=== PATIENT | male | born 1980 | race Two or more races ===

== ENCOUNTER 2017-04-08 10:02 | Inpatient (IN) | payer MEDICAID ==
[~2017-04-08] VITALS: Ht 185.4 cm; Wt 121.6 kg
--- NOTE | 2017-04-08 10:02 | NUR ---
BIBRA 89 FROM HOME C/O LOWER ABDOMINAL PAIN MORE ON THE LEFT X YESTERDAY. TEMP 100.6 . PLACED ON MONITOR. AWAITING MD ORDER
--- NOTE | 2017-04-08 10:20 | NUR ---
LAC #18 IV ACCESS. BLOOD SAMPLE COLLECTED SENT TO LAB
--- NOTE | 2017-04-08 10:21 | NUR ---
URINE SAMPLE COLLECTED SENT TO LAB
[2017-04-08 10:23] LABS: APPEARANCE,URINE Clear (CLEAR); BILIRUBIN,URINE SMALL (NEGATIVE); BLOOD, URINE Negative Ery/uL (NEGATIVE); COLOR,URINE Yellow (YELLOW); KETONES,URINE Negative (NEGATIVE); LEUKOCYTE ESTERASE ,URINE Negative (NEGATIVE); NITRITE, URINE Negative (NEGATIVE); PH,URINE 6.5 (5.0-8.0); PROTEIN,URINE Trace mg/dl (NEGATIVE); UGLUCOSE Negative (NEGATIVE)
[2017-04-08 10:23] LABS: BASOPHILS # (AUTO) 0.1 /CMM (0.0-0.2); BASOPHILS % (AUTO) 0.7 % (0.0-2.0); EOSINOPHILS # (AUTO) 0.2 /CMM (0.0-0.7); EOSINOPHILS % (AUTO) 1.3 % (0.0-6.0); HEMATOCRIT 43 % (39-51); HEMOGLOBIN 14.7 g/dL (13.5-17.5); LYMPHOCYTES # (AUTO) 2.3 /CMM (0.8-4.8); LYMPHOCYTES % (AUTO) 19.9 % (20.0-44.0); MEAN CORPUSCULAR HEMOGLOBIN 29 PG (26.0-33.0); MEAN CORPUSCULAR HGB CONC 34 g/dl (31.0-36.0); MEAN CORPUSCULAR VOLUME 84 fL (80-96); MONOCYTES # (AUTO) 0.7 /CMM (0.1-1.30); MONOCYTES % (AUTO) 6.1 % (2.0-12.0); NEUTROPHILS # (AUTO) 8.5 /CMM (1.8-8.9); PLATELET COUNT (AUTO) 207 /CMM (150-450); RDW COEFFICIENT OF VARIATION 12.3 (11.5-15.0); RED BLOOD CELL COUNT(AUTO) 5.14 MIL/uL (4.5-6.0); WHITE BLOOD COUNT (AUTO) 11.8 K/uL (4.3-11.0)
[2017-04-08] MEDS ORDERED: ONDANSETRON HCL/PF 4 MG/2 ML VIAL ONE (10:29)
[2017-04-08] MEDS ORDERED: ONDANSETRON HCL/PF 4 MG/2 ML VIAL IVP ONE (10:30)
[2017-04-08] MEDS ORDERED: HYDROMORPHONE INJ 2 MG/ML DISP.SYRIN IV ONE (10:30)
[2017-04-08] MEDS ORDERED: IV NS 0.9% 1,000 ML BAG IV ONE (10:30)
--- NOTE | 2017-04-08 10:30 | NUR ---
PT TAKEN TO CT SCAN
[2017-04-08 10:32] LABS: CALCIUM, SERUM 8.7 mg/dL (8.5-10.1); POTASSIUM 3.7 mmol/L (3.5-5.1)
[2017-04-08] MEDS ORDERED: KETOROLAC TROMETHAMINE INJ 30 MG/ML VIAL ONE (10:34)
[2017-04-08 10:35] LABS: BACTERIA,URINE Rare /HPF (None Seen); RBC,URINE 0-2 /HPF (0-2); SQUAMOUS EPITHELIAL CELL,UR Few /HPF (None Seen); WBC,URINE 0-2 /HPF (0-3)
[2017-04-08 10:38] LABS: ALBUMIN 3.7 g/dL (3.4-5.0); BILIRUBIN,DIRECT 0.1 mg/dL (0.0-0.2); BILIRUBIN,TOTAL 0.7 mg/dL (0.2-1.0); INR 1.03 (0.87-1.13); PROTHROMBIN TIME 10.7 SECS (9.5-12.7); TOTAL PROTEIN, SERUM 7.7 g/dL (6.4-8.2)
[2017-04-08] MEDS ORDERED: KETOROLAC TROMETHAMINE INJ 30 MG/ML VIAL IV ONE (11:00)
--- NOTE | 2017-04-08 11:10 | NUR ---
CALLED DR OLIVER ANSWERING SERVICE, I WAS TOLD TO CALL BACK IN 15 MINS.
--- NOTE | 2017-04-08 11:10 | NUR ---
CALLED SURGERY PAINT LINE SUPERVISOR, DR CHEUNG [phone]. LEFT A VOICEMAIL.
[2017-04-08] MEDS ORDERED: CEFTRIAXONE 1GM BAG (ER ONLY) 50 ML IV ONE (11:16)
[2017-04-08] MEDS ORDERED: METRONIDAZOLE 500MG/ NS 100ML 100 ML IV ONE (11:16)
[2017-04-08] MEDS ORDERED: IV NS 0.9% 500 ML IV ONE (11:30)
[2017-04-08] MEDS ORDERED: CEFTRIAXONE 1GM BAG (ER ONLY) 1 GM/50 ML PIGGYBACK IV ONE (11:30)
[2017-04-08] MEDS ORDERED: FLAGYL/NS RTU 500 MG/100 ML PIGGYBACK IV ONE (11:30)
--- NOTE | 2017-04-08 11:51 | NUR ---
PAGED DR JARRELL.
--- NOTE | 2017-04-08 11:53 | NUR ---
DR CHEUNG CALLED BACK, ON THE PHONE WITH DR LYLE.
--- NOTE | 2017-04-08 12:15 | NUR ---
GAVE REPORT TO VAUGHN MCDONNELLSURG DIVERTICULTIS DR [place]AM
[2017-04-08 12:50] VITALS: BP 131/69
--- NOTE | 2017-04-08 12:50 | NUR ---
ms rn documentation specialist notes Admitted a 36 years old male patient who came in due to diverticulitis. Patient is alert and oriented x 4, verbally responsive and able to make needs known. Complaint of pain 5/10 at this time. Pain medication given at the ER prior transfer, will monitor. IV in placed and intact and patent with IVF infusing well. Dr. Valiente aware of the admission. Kept patient clean and comfortable in bed, call light with in patient reach, skin is intact. Will continue to monitor accordingly.
[2017-04-08] MEDS ORDERED: PIPERACILLIN /TAZOBACTAM 4.5 G in IV D5W 50 ML IV SCH (13:00)
[2017-04-08] MEDS ORDERED: Z GUARD REMEDY 2 OZ OINT TP PRN (13:30)
[2017-04-08] MEDS ORDERED: MAG HYDROX/AL HYDROX/SIMETH 30 ML UDC PO PRN (13:30)
[2017-04-08] MEDS ORDERED: MAGNESIUM HYDROXIDE 30 ML UDC PO PRN (13:30)
[2017-04-08] MEDS ORDERED: ACETAMINOPHEN 325 MG TABLET PO PRN (13:30)
[2017-04-08] MEDS ORDERED: METRONIDAZOLE 500MG/ NS 100ML 500 MG in PREMIX 1 EA IV SCH ×2 (13:30)
[2017-04-08] MEDS ORDERED: ONDANSETRON HCL/PF 4 MG/2 ML VIAL IVP PRN (13:30)
[2017-04-08] MEDS ORDERED: HYDROCODONE/APAP 5/325MG 1 EACH TABLET PO PRN (13:30)
[2017-04-08] MEDS ORDERED: ZOLPIDEM TARTRATE 5 MG TABLET PO PRN (13:30)
[2017-04-08] MEDS: PIPERACILLIN /TAZOBACTAM 3.375 G in IV D5W 50 ML IV SCH ×3 (13:37→23:27)
[2017-04-08] MEDS: MORPHINE SULFATE INJ 2 MG/ML DISP.SYRIN IV PRN ×2 (14:17→18:06)
[2017-04-08] MEDS: CIPROFLOXACIN IV RTU 400 MG in PREMIX 1 EA IV SCH (15:02)
[2017-04-08 16:00] VITALS: BP 113/64
--- NOTE | 2017-04-08 18:13 | NUR ---
ms rn notes Dr. douglas came seen and examined the patient and ordered to change Morphine to dilaudid 1 mg IVP Q3hrs for severe pain. All orders carried out and noted. Will continue to monitor accordingly.
--- NOTE | 2017-04-08 18:17 | NUR ---
ms rn notes changed dilaudid to Morphine 4 mg Q2hrs PRN for severe pain as ordered by Dr. Russ. All orders carried out and noted. Will continue to monitor accordingly.
[2017-04-08] MEDS ORDERED: HYDROMORPHONE 1 MG/1 ML DISP.SYRIN IV PRN (18:30)
[2017-04-08] MEDS ORDERED: MORPHINE SULFATE INJ 4 MG/ML DISP.SYRIN IV PRN (18:30)
--- NOTE | 2017-04-08 19:26 | NUR ---
ms rn closing notes All needs provided, attended, and anticipated. kept patient clean and comfortable in bed, call light with in patient reach, endorsed to next shift RN to continue care.
[2017-04-08 20:00] VITALS: BP 145/71
--- NOTE | 2017-04-08 20:00 | NUR ---
RN NOTES PATIENT IN BED, ALERT AND ORIENTED X4, CALM, WITH EPISODES OF IRRITABILITY, NO SOB, TOLERATING ROOM AIR, SPO2 95%,COMPLAINING OF ABDOMINAL PAIN, RECEIVED PAIN MEDICATION, LEFT AC PERIPHERAL LINE IS PATENT AND INFUSING WELL, SEEN BY DR. LAGUNA. KEPT COMFORTABLE, CALL LIGHT WITHIN REACH. MOTHER AT THE BEDSIDE.
[2017-04-08] MEDS: METRONIDAZOLE 500MG/ NS 100ML 500 MG in PREMIX 1 EA IV SCH (20:06)
--- NOTE | 2017-04-08 20:10 | NUR ---
RN NOTES PATIENT TEMPERATURE IS 101.2F. SKIN IS WARM TO TOUCH, NOTIFIED DR. LAGUNA TO CHANGE DIET TO NPO EXCEPT MEDS. GIVEN TYLENOL 650 MG PO PRN. COOLING MEASURES INITIATED, WILL CONTINUE TO MONITOR.
--- NOTE | 2017-04-08 21:30 | NUR ---
RN NOTES RECHECKED TEMPERATURE, 98.5F. PATIENT VERBALIZED FEELING COMFORTABLE EXCEPT FOR ABDOMINAL PAIN, WILL ADMINISTER PAIN MEDICATION WHEN DUE.
[2017-04-08] MEDS: IV D5/0.45 NACL 1,000 ML IV PRN (21:34)
[2017-04-09] MEDS: CIPROFLOXACIN IV RTU 400 MG in PREMIX 1 EA IV SCH ×2 (01:20→13:47)
[2017-04-09] MEDS: METRONIDAZOLE 500MG/ NS 100ML 500 MG in PREMIX 1 EA IV SCH ×2 (04:11→12:26)
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
[2017-04-09 05:30] VITALS: BP 121/86
[2017-04-09] MEDS: PIPERACILLIN /TAZOBACTAM 3.375 G in IV D5W 50 ML IV SCH ×4 (05:38→23:57)
--- NOTE | 2017-04-09 06:52 | NUR ---
RN NOTES PATIENT IS AWAKE, NO SOB, NO DISTRESS, PROVIDED PAIN MEDICATION DURING SHIFT, ALL DUE MEDICATIONS GIVEN, COMPLIANT WITH MEDICATION, ALL NEEDS ATTENDED, CALL LIGHT WITHIN REACH.
[2017-04-09 07:16] LABS: BASOPHILS % (AUTO) 0.6 % (0.0-2.0); EOSINOPHILS # (AUTO) 0.3 /CMM (0.0-0.7); EOSINOPHILS % (AUTO) 3.5 % (0.0-6.0); HEMATOCRIT 38 % (39-51); HEMOGLOBIN 13.1 g/dL (13.5-17.5); LYMPHOCYTES # (AUTO) 1.6 /CMM (0.8-4.8); LYMPHOCYTES % (AUTO) 20.6 % (20.0-44.0); MEAN CORPUSCULAR HEMOGLOBIN 29 PG (26.0-33.0); MEAN CORPUSCULAR HGB CONC 34 g/dl (31.0-36.0); MEAN CORPUSCULAR VOLUME 85 fL (80-96); MONOCYTES # (AUTO) 0.7 /CMM (0.1-1.30); MONOCYTES % (AUTO) 8.5 % (2.0-12.0); NEUTROPHILS # (AUTO) 5.3 /CMM (1.8-8.9); NEUTROPHILS % (AUTO) 66.8 % (43.0-81.0); PLATELET COUNT (AUTO) 170 /CMM (150-450); RDW COEFFICIENT OF VARIATION 12.9 (11.5-15.0); RED BLOOD CELL COUNT(AUTO) 4.52 MIL/uL (4.5-6.0); WHITE BLOOD COUNT (AUTO) 7.9 K/uL (4.3-11.0)
[2017-04-09 07:19] LABS: INR 1.05 (0.87-1.13); PROTHROMBIN TIME 10.9 SECS (9.5-12.7)
--- NOTE | 2017-04-09 07:27 | NUR ---
ms rn initial notes Received patient in bed, awake, head of bed elevated, no SOB or distress noted, on room air. Patient is alert and oriented x 4, verbally responsive and able to make needs known. IV intact and patent with IVF infusing well. Pain is tolerated as patient verbalized. kept patient clean and comfortable in bed, call light with in patient reach, will continue to monitor accordingly.
[2017-04-09 07:42] LABS: ALBUMIN 2.9 g/dL (3.4-5.0); BILIRUBIN,TOTAL 1.1 mg/dL (0.2-1.0); CALCIUM, SERUM 8.3 mg/dL (8.5-10.1); MAGNESIUM 1.8 mg/dL (1.8-2.4); PHOSPHORUS 2.5 mg/dL (2.5-4.9); POTASSIUM 3.7 mmol/L (3.5-5.1); TOTAL PROTEIN, SERUM 6.7 g/dL (6.4-8.2)
[2017-04-09 07:48] LABS: THYROID STIMULATING HORMONE 1.192 uIU/mL (0.358-3.74)
[2017-04-09 08:00] VITALS: BP 130/72
[2017-04-09] MEDS: NICOTINE PATCH (14MG) 14 MG PATCH.TD24 TD SCH (08:54)
[2017-04-09] MEDS: PANTOPRAZOLE 40 MG VIAL IV SCH (08:54)
[2017-04-09 10:22] LABS: RETICULOCYTE COUNT 1.5 % (0.6-2.5)
[2017-04-09] MEDS: IV D5/0.45 NACL 1,000 ML IV PRN (13:50)
[2017-04-09 16:00] VITALS: BP 126/69
[2017-04-09 20:00] VITALS: BP 106/52
--- NOTE | 2017-04-09 20:00 | NUR ---
RN NOTES PATIENT IN BED, ALERT AND ORIENTED X4, CALM, NO SOB, NO RESPIRATORY DISTRESS, NO COMPLAIN OF PAIN, PER PATIENT ABDOMINAL PAIN OCCURS WHEN MOVING. LEFT AC PERIPHERAL LINE IS PATENT AND INFUSING WELL. NEEDS ATTENDED, CALL LIGHT WITHIN REACH.
--- NOTE | 2017-04-09 20:15 | NUR ---
RN NOTES PATIENT REQUESTING SOME WATER, VERIFIED WITH DR. LAGUNA. PER , STRICTLY NPO. CHANGED ORDER FROM NPO EXCEPT MEDS TO NPO ONLY. PATIENT NOTIFIED, VERBALIZED UNDERSTANDING
[2017-04-10] MEDS: IV D5/0.45 NACL 1,000 ML IV PRN ×2 (05:31→22:32)
[2017-04-10] MEDS: PIPERACILLIN /TAZOBACTAM 3.375 G in IV D5W 50 ML IV SCH ×4 (05:31→23:38)
--- NOTE | 2017-04-10 06:44 | NUR ---
RN NOTES PATIENT IS AWAKE, RESTING COMFORTABLY IN BED, NO SOB, NO DISTRESS, DENIES ANY PAIN AT THIS TIME, LEFT AC PERIPHERAL LINE IS PATENT AND INFUSING WELL, COMPLIANT WITH MEDICATIONS, SLEPT FOR 8 HOURS INTERMITTENTLY, NO ADVERSE CHANGE OF CONDITION DURING SHIFT, NEEDS ATTENDED, CALL LIGHT WITHIN REACH.
--- NOTE | 2017-04-10 07:55 | NUR ---
MS RN: INITIAL NOTE RECEIVED PT A/OX4. NO DISTRESS NOTED. NO SOB NOTED. NO PAIN NOTED. NO N/V NOTED. COMPLETE NPO. AMBULATORY. SKIN INTACT. L AC #18 WITH D5 1/2 NS RUNNING AT 75ML/HR. SITE CLEAR AND PATENT. STOOL FOR OCCULT BLOOD COLLECTED AND SENT TO LAB. PT RESTING COMFORTABLY IN BED. CALL LIGHT WITHIN REACH.
[2017-04-10 08:00] VITALS: BP 117/60
[2017-04-10] MEDS: PANTOPRAZOLE 40 MG VIAL IV SCH ×2 (08:41→09:02)
[2017-04-10] MEDS: NICOTINE PATCH (14MG) 14 MG PATCH.TD24 TD SCH (08:42)
[2017-04-10 12:40] LABS: BASOPHILS # (AUTO) 0.1 /CMM (0.0-0.2); BASOPHILS % (AUTO) 1.1 % (0.0-2.0); EOSINOPHILS # (AUTO) 0.3 /CMM (0.0-0.7); EOSINOPHILS % (AUTO) 4.6 % (0.0-6.0); HEMATOCRIT 40 % (39-51); HEMOGLOBIN 13.5 g/dL (13.5-17.5); LYMPHOCYTES # (AUTO) 1.6 /CMM (0.8-4.8); LYMPHOCYTES % (AUTO) 26.8 % (20.0-44.0); MEAN CORPUSCULAR HEMOGLOBIN 28 PG (26.0-33.0); MEAN CORPUSCULAR HGB CONC 34 g/dl (31.0-36.0); MEAN CORPUSCULAR VOLUME 85 fL (80-96); MONOCYTES # (AUTO) 0.4 /CMM (0.1-1.30); MONOCYTES % (AUTO) 7.3 % (2.0-12.0); NEUTROPHILS # (AUTO) 3.6 /CMM (1.8-8.9); NEUTROPHILS % (AUTO) 60.2 % (43.0-81.0); PLATELET COUNT (AUTO) 216 /CMM (150-450); RED BLOOD CELL COUNT(AUTO) 4.76 MIL/uL (4.5-6.0)
[2017-04-10 13:59] LABS: CALCIUM, SERUM 9.1 mg/dL (8.5-10.1); CREATININE 0.9 mg/dL (0.6-1.3); POTASSIUM 3.8 mmol/L (3.5-5.1)
[2017-04-10 16:00] VITALS: BP 121/76
--- NOTE | 2017-04-10 17:36 | NUR ---
PER MD TELEPHONE ORDER TO PLACE CLEAR LIQUID DIET STARTING ON 04/11/17. IF PT TOLERATES. WILL BE ABLE TO D/C ON 04/12/17.
--- NOTE | 2017-04-10 18:37 | NUR ---
MS RN: CLOSING NOTE PT A/OX4. TOOK ALL MEDICATIONS ON TIME. NO ADVERSE REACTIONS NOTED. NO PAIN NOTED. NO SOB NOTED. TOOK ALL MEDICATIONS ON TIME. BRP. SKIN INTACT. AMBULATES. NPO EVEN MEDS. PER MD TO PLACE ORDER FOR CLEAR LIQUIDS STARTING TOMORROW. ORDERS CARRIED OUT. IV ON L AC #22 RUNNING D5 1/2 NS AT 75ML/HR. SITE CLEAR AND PATENT. NO REDNESS NOTED. NO BLEEDING NOTED. RESTING COMFORTABLY IN BED. CALL LIGHT WITHIN REACH.
[2017-04-10 20:00] VITALS: BP 129/72
[2017-04-11] MEDS: PIPERACILLIN /TAZOBACTAM 3.375 G in IV D5W 50 ML IV SCH ×3 (05:27→17:40)
--- NOTE | 2017-04-11 06:50 | NUR ---
MS RN NOTES AWAKE & RESPONSIVE. NOT IN ANY DISTRESS. NO SOB NOTED. DENIES ANY PAIN OR DISCOMFORT AT THIS TIME. MONITORED ACCORDINGLY. CALL LIGHT WITHIN REACH. BED IN LOWEST POSITION. SR UP X 2 FOR SAFETY. WILL ENDORSE TO NEXT SHIFT.
--- NOTE | 2017-04-11 07:30 | NUR ---
MS/RN Patient received Patient received from awake overnight counselor. All needs attended, denies any pain or discomfort. Will continue to monitor.
[2017-04-11 08:00] VITALS: BP 117/69
[2017-04-11] MEDS: NICOTINE PATCH (14MG) 14 MG PATCH.TD24 TD SCH (08:39)
[2017-04-11] MEDS: PANTOPRAZOLE 40 MG VIAL IV SCH (08:39)
--- NOTE | 2017-04-11 09:03 | NUR ---
MS/RN Refused medication Patient refused all morning medications, educated as to the importance of taking medications as ordered by MD but continues to refuse.
--- NOTE | 2017-04-11 12:00 | NUR ---
MS/RN IVAB IVAB hung as ordered, infusing without any signs of infiltration.
--- NOTE | 2017-04-11 13:26 | NUR ---
MS/RN Plan of care updated Patient updated as to plan of care. Tolerating oral fluids without any nausea or vomiting. Awaiting review, for possible discharge later today.
[2017-04-11 16:00] VITALS: BP 121/68
--- NOTE | 2017-04-11 16:21 | NUR ---
MS/RN S/B Elpidio Sommer LINSEED OIL TEMPERER Seen by Elpidio - to remain in hospital overnight for further labs in morning and to await clearance from surgery.
--- NOTE | 2017-04-11 18:56 | NUR ---
MS/RN End note Seen by Elpidio - has been able to make contact with Dr Parr and is stable for discharge. Prescriptions for pain medications wrote and faxed to patient's pharmacy. Heplock and name bands removed. Will endorse to maintenance fitter.
[2017-04-11 20:00] VITALS: BP 126/83
--- NOTE | 2017-04-11 20:00 | NUR ---
MS RN NOTES CAME IN AND PICKED UP PT. PT NOT IN ANY DISTRESS. NO SOB NOTED. DENIES ANY PAIN OR DISCOMFORT AT THIS TIME. BELONGINGS SENT HOME WITH PT. DISCHARGE INSTRUCTIONS PROVIDED WELL PRESCRIPTION. PT UNDERSTOOD IT WELL. VSS. AFEBRILE. SKIN INTACT.
== END 2017-04-11 20:00 | disposition home or self-care (01) | DRG 244 ==
LOC: ER 10:03 → MEDSG2 11:59
PROVIDERS: ADMIT Internal Medicine; ATTEND Internal Medicine
DX: K57.80 Diverticulitis of intestine, part unspecified, with perforation and abscess without bleeding (principal); D68.59 Other primary thrombophilia; E44.0 Moderate protein-calorie malnutrition; E78.5 Hyperlipidemia, unspecified; D50.9 Iron deficiency anemia, unspecified; F17.200 Nicotine dependence, unspecified, uncomplicated; E66.9 Obesity, unspecified; D72.829 Elevated white blood cell count, unspecified; Z68.35 Body mass index [BMI] 35.0-35.9, adult
CPT/HCPCS: 36415; 71010-TC; 80048-TC; 80053-TC; 80061-TC; 80076-TC; 81000-TC; 82150-TC; 82272-TC; 82746; 83540-TC; 83690-TC; 83735-TC; 84100-TC; 84443-TC; 85025-TC; 85045-TC; 85652-TC; 85730-TC; 87040-TC; 87081-TC; 93307-TC; A4216; A4606; C9113; J0696; J0744; J1885; J2270; J2405; J2543; J3490; J7030; J7040; J7050; J7060; Z7610